=== PATIENT | male | born 1955 | race Native Hawaiian/Other Pacific Islander ===

== ENCOUNTER 2018-04-22 14:00 | Emergency (ER) | payer OTHER ==
[~2018-04-22] VITALS: Ht 172.7 cm; Wt 75.3 kg
[2018-04-22 17:05] VITALS: BP 142/77; TEMP 97.5
== END 2018-04-22 17:10 | disposition home or self-care (01) ==
LOC: ED 14:00
DX: M43.9 Deforming dorsopathy, unspecified (principal); S20.222A Contusion of left back wall of thorax, initial encounter; S20.221A Contusion of right back wall of thorax, initial encounter; W18.39XA Other fall on same level, initial encounter; Y92.89 Other specified places as the place of occurrence of the external cause
CPT/HCPCS: 96372; 99283; J2175; J2405

== ENCOUNTER 2018-04-26 12:02 | Outpatient (CLI) | payer OTHER ==
[2018-04-26 13:37] LABS: PLATELET COUNT 245 K/uL (142-355)
[2018-04-26 13:52] LABS: POTASSIUM 4.4 mmol/L (3.6-5.2)
== END 2018-04-26 21:45 | disposition home or self-care (01) ==
LOC: LABW 12:02
PROVIDERS: Nurse Practitioner Family
DX: Z12.5 Encounter for screening for malignant neoplasm of prostate (principal); R53.83 Other fatigue
CPT/HCPCS: 36415; 80053; 80061; 80074; 82306; 82607; 84153; 84402; 84403; 84439; 84443; 85027

== ENCOUNTER 2018-06-11 10:17 | Outpatient (CLI) | payer OTHER | END 2018-06-11 20:52 | disposition home or self-care (01) | LOC: RAD 10:17 | DX: M54.6 Pain in thoracic spine (principal); S20.20XS Contusion of thorax, unspecified, sequela ==

== ENCOUNTER 2019-07-08 15:49 | Outpatient (CLI) | payer BC ==
[2019-07-08 16:17] LABS: PLATELET COUNT 242 K/uL (142-355)
[2019-07-08 16:30] LABS: POTASSIUM 4.2 mmol/L (3.6-5.2)
== END 2019-07-08 19:16 | disposition home or self-care (01) ==
LOC: LABW 15:49
PROVIDERS: Nurse Practitioner Family
DX: R42 Dizziness and giddiness (principal)
CPT/HCPCS: 36415; 80053; 85027

== ENCOUNTER 2020-10-26 16:39 | Outpatient (CLI) | payer OTHER | END 2020-10-26 18:00 | disposition home or self-care (01) | LOC: RAD 16:39 | PROVIDERS: ATTEND Nurse Practitioner Family | DX: M25.511 Pain in right shoulder (principal); M54.12 Radiculopathy, cervical region ==

== ENCOUNTER 2022-06-24 09:34 | Outpatient (CLI) | payer OTHER | END 2022-06-24 21:20 | disposition home or self-care (01) | LOC: RESP 09:34 | PROVIDERS: ATTEND Nurse Practitioner Family | DX: I10 Essential (primary) hypertension (principal) ==

== ENCOUNTER 2022-07-18 08:20 | Outpatient (CLI) | payer OTHER ==
[~2022-07-18] VITALS: Ht 175.3 cm; Wt 77.6 kg
== END 2022-07-18 19:01 | disposition home or self-care (01) ==
LOC: NM 08:20
PROVIDERS: ATTEND Nurse Practitioner Family
DX: I10 Essential (primary) hypertension (principal); R74.01 Elevation of levels of liver transaminase levels; Z79.899 Other long term (current) drug therapy
CPT/HCPCS: A9500; J2785